=== PATIENT | male | born 1975 | race Two or more races ===

== ENCOUNTER 2019-08-12 23:12 | Emergency (ER) | payer SELFPAY ==
[~2019-08-12] VITALS: Ht 167.6 cm; Wt 86.2 kg
[2019-08-12 23:23] VITALS: BP 169/93
[2019-08-13] MEDS ORDERED: KETOROLAC 15 MG/ML VIAL. IV ONE
[2019-08-13] MEDS ORDERED: MORPHINE SULFATE 4 MG/ML VIAL. IV ONE
[2019-08-13] MEDS ORDERED: IV NORMAL SALINE 1000ML BAG 1,000 ML IV ONE
--- NOTE | 2019-08-13 00:22 | RAD ---
CT ABDOMEN PELVIS WO CONTRAST INDICATION: Flank pain for 2 months EXAM: Noncontrast CT of the abdomen and pelvis. Coronal and sagittal reformatted images were performed. PQRS compliance statement: One or more of the following individualized dose reduction techniques were utilized for this examination: 1. Automated exposure control 2. Adjustment of the mA and/or kV according to patient size 3. Use of iterative reconstruction technique COMPARISON: None FINDINGS: No free air, free fluid, or fluid collection. Lower chest: The visualized lower lungs are aerated. No pleural or pericardial effusion. ABDOMEN: Liver: The noncontrast liver is homogeneous in attenuation. Gallbladder and biliary: Normal gallbladder without radiopaque stone. Normal caliber bile ducts. Spleen: Normal spleen. Pancreas: The noncontrast pancreas is homogeneous in attenuation without peripancreatic inflammatory changes. Adrenal glands: Normal adrenal glands. Kidneys and ureters: No hydronephrosis or opaque urinary calculi. GI tract: The stomach is distended with debris. Normal caliber small bowel and colon. Normal appendix. Vascular structures: Normal caliber abdominal aorta. Lymph nodes: No lymphadenopathy in the abdomen or pelvis. PELVIS: Genitourinary system: Normal bladder. Normal size prostate. SKELETAL STRUCTURES AND SOFT TISSUES: No fracture or destructive lesion in the visualized skeleton. IMPRESSION: No acute abdominal process. No hydronephrosis or opaque urinary calculi. Electronically signed by: Jimmy Maldonado MD (08/13/2019 12:19 AM) [facility]
[2019-08-13 00:30] LABS: BILIRUBIN,URINE NEGATIVE (NEG); CLARITY,URINE CLEAR; COLOR,URINE YELLOW; NITRITE,URINE NEGATIVE (NEG); PROTEIN,URINE NEGATIVE (NEG-TRACE); UROBILINOGEN,URINE 0.2 mg/dL (0.2 mg/dL)
[2019-08-13 00:37] LABS: AMPHETAMINE/METHAMPHETAMINE NEG (NEG); BARBITURATES NEG (NEG); BENZODIAZEPINES NEG (NEG); CANNABINOIDS NEG (NEG); COCAINE NEG (NEG); METHADONE NEG (NEG); OPIATES NEG (NEG); PHENCYCLIDINE NEG (NEG)
[2019-08-13 00:43] LABS: BACTERIA,URINE 0 /HPF (0-FEW); SQUAMOUS EPITHELIAL CELL,UR FEW /LPF
--- NOTE | 2019-08-13 00:43 | PHYS DOC ---
Past Medical History Past Medical History: No Pertinent History Past Surgical History: No Surgical History Alcohol Use: None Drug Use: None Adult General Chief Complaint Chief Complaint: FLANK PAIN [facility] HPI Patient is a 43 year old Jamaican-speaking male with no medical history who presents to the ED today complaining of 10 out of 10 bilateral flank pain/mid back pain radiating to the groin that began 2 months ago. 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 Patient states immobilization sometimes relieves the pain. She states this afternoon the pain was slightly more than normal and he decided to come to the ED to be evaluated. Denies any known injury. Denies any urgency, frequency, dysuria. Denies any hematuria, denies any personal family history of kidney stones. Transliterator line was used for [place] Review of Systems Review of Systems Constitutional: Denies fever or chills [] Eyes: Denies change in visual acuity, redness, or eye pain [] HENT: Denies nasal congestion or sore throat [] Respiratory: Denies cough or shortness of breath [] Cardiovascular: No additional information not addressed in HPI [] GI: Denies abdominal pain, nausea, vomiting, bloody stools or diarrhea [] : Denies dysuria or hematuria [] Musculoskeletal: Reports bilateral flank pain radiating to the groin Integument: Denies rash or skin lesions [] Neurologic: Denies headache, focal weakness or sensory changes [] All other systems were reviewed and found to be within normal limits, except as documented in this note. Current Medications Current Medications Current Medications Medications (Trade) Dose Ordered Sig/Chrissie Start Time Stop Time Status Last Admin Dose Admin Ketorolac Tromethamine (Toradol 15mg Vial) 15 mg 1X ONCE 08/13/19 00:00 08/13/19 00:01 DC Morphine Sulfate (Morphine Sulfate) 4 mg 1X ONCE 08/13/19 00:00 08/13/19 00:01 DC Sodium Chloride 1,000 ml @ 1,000 mls/hr 1X ONCE 08/13/19 00:00 08/13/19 00:59 Allergies Allergies Allergies Coded Allergies Type Severity Reaction Last Updated Verified No Known Drug Allergies 08/12/19 No Physical Exam Physical Exam Constitutional: Well developed, well nourished, no acute distress, non-toxic appearance. [] HENT: Normocephalic, atraumatic, bilateral external ears normal, oropharynx moist, no oral exudates, nose normal. [] Eyes: PERRLA, EOMI, conjunctiva normal, no discharge. [] Neck: Normal range of motion, no tenderness, supple, no stridor. [] Cardiovascular:Heart rate regular rhythm, no murmur [] Lungs & Thorax: Bilateral breath sounds clear to auscultation [] Abdomen: Bowel sounds normal, soft, no tenderness, no masses, no pulsatile masses. [] Skin: Warm, dry, no erythema, no rash. [] Back: No tenderness, no CVA tenderness. [] Extremities: No tenderness, no cyanosis, no clubbing, ROM intact, no edema. [] Neurologic: Alert and oriented X 3, normal motor function, normal sensory function, no focal deficits noted. [] Psychologic: Affect normal, judgement normal, mood normal. [] Current Patient Data Vital Signs Vital Signs Date Time Temp Pulse Resp B/P (MAP) Pulse Ox O2 Delivery O2 Flow Rate FiO2 08/12/19 23:23 98.0 96 18 169/93 (118) 95 Room Air 98.0 Lab Values Laboratory Tests Test 08/13/19 00:15 Urine Collection Type Unknown Urine Color Yellow Urine Clarity Clear Urine pH 5.0 Urine Specific [place] 1.025 Urine Protein Negative mg/dL (NEG-TRACE) Urine Glucose (UA) Negative mg/dL (NEG) Urine Ketones (Stick) Negative mg/dL (NEG) Urine Blood Negative (NEG) Urine Nitrite Negative (NEG) Urine Bilirubin Negative (NEG) Urine Urobilinogen Dipstick 0.2 mg/dL (0.2 mg/dL) Urine Leukocyte Esterase Negative (NEG) Urine RBC 1-2 /HPF (0-2) Urine WBC 1-4 /HPF (0-4) Urine Squamous Epithelial Cells Few /LPF Urine Bacteria 0 /HPF (0-FEW) Urine Opiates Screen Neg (NEG) Urine Methadone Screen Neg (NEG) Urine Barbiturates Neg (NEG) Urine Phencyclidine Screen Neg (NEG) Urine Amphetamine/Methamphetamine Neg (NEG) Urine Benzodiazepines Screen Neg (NEG) Urine Cocaine Screen Neg (NEG) Urine Cannabinoids Screen Neg (NEG) Urine Ethyl Alcohol Neg (NEG) EKG EKG [] Radiology/Procedures Radiology/Procedures []PROCEDURE: CT ABDOMEN PELVIS WO CONTRAST CT ABDOMEN PELVIS WO CONTRAST INDICATION: Flank pain for 2 months EXAM: Noncontrast CT of the abdomen and pelvis. Coronal and sagittal reformatted images were performed. PQRS compliance statement: One or more of the following individualized dose reduction techniques were utilized for this examination: 1. Automated exposure control 2. Adjustment of the mA and/or kV according to patient size 3. Use of iterative reconstruction technique COMPARISON: None FINDINGS: No free air, free fluid, or fluid collection. Lower chest: The visualized lower lungs are aerated. No pleural or pericardial effusion. ABDOMEN: Liver: The noncontrast liver is homogeneous in attenuation. Gallbladder and biliary: Normal gallbladder without radiopaque stone. Normal caliber bile ducts. Spleen: Normal spleen. Pancreas: The noncontrast pancreas is homogeneous in attenuation without peripancreatic inflammatory changes. Adrenal glands: Normal adrenal glands. Kidneys and ureters: No hydronephrosis or opaque urinary calculi. GI tract: The stomach is distended with debris. Normal caliber small bowel and colon. Normal appendix. Vascular structures: Normal caliber abdominal aorta. Lymph nodes: No lymphadenopathy in the abdomen or pelvis. PELVIS: Genitourinary system: Normal bladder. Normal size prostate. SKELETAL STRUCTURES AND SOFT TISSUES: No fracture or destructive lesion in the visualized skeleton. IMPRESSION: No acute abdominal process. No hydronephrosis or opaque urinary calculi. Electronically signed by: Yuliana Basilio MD (08/13/2019 12:19 AM) [facility] DICTATED and SIGNED BY: YULIANA BASILIO MD DATE: 08/13/19 0019 Course & Med Decision Making Course & Med Decision Making Pertinent Labs and Imaging studies reviewed. (See chart for details) This is a 43-year-old male patient presenting to the ED today complaining of flank pain/mid back pain for 2 months. No known injury. CT of the abdomen and pelvic is negative for any acute findings, UA is negative. Pain is musculoskeletal provided prescription pain medicine for home use and encouraged to follow up with her primary care doctor. Barney Disclaimer Dragon Disclaimer This electronic medical record was generated, in whole or in part, using a voice recognition dictation system. Departure Departure Impression: Primary Impression: Acute thoracic back pain Additional Impression: Low back pain Disposition: 01 HOME, SELF-CARE Condition: STABLE Referrals: NO PCP (PCP) follow up in with your doctor in one week Patient Instructions: Back Pain, Adult, [id number] Additional Instructions: You were seen in the emergency room for back pain. Take the prescribed medications as needed for pain. Please follow-up with your own doctor in 1-2 weeks. Come back to the ED at any point symptoms worsen. Consider using a heating pad to your back. Scripts Naproxen (NAPROXEN) 500 Mg Tablet 1 TAB PO BID, #20 TAB 0 Refills Prov: ELENI SIMS APRN 08/13/19 Hydrocodone/Apap 5-325 (NORCO 5-325 TABLET) 1 Each Tablet 1 TAB PO Q6HRS PRN for PAIN MDD 8, #10 TAB Prov: ELENI SIMS APRN 08/13/19 Cyclobenzaprine Hcl (CYCLOBENZAPRINE HCL) 10 Mg Tablet 1 TAB PO TID, #30 TAB Prov: ELENI SIMS APRN 08/13/19 Methylprednisolone (MEDROL) 4 Mg Tab.ds.pk 1 PKG PO UD, #1 PKG Prov: ELENI SIMS APRN 08/13/19 Problem Qualifiers Primary Impression: Acute thoracic back pain Back pain laterality: bilateral Qualified Codes: M54.6 - Pain in thoracic spine Additional Impression: Low back pain Chronicity: acute Back pain laterality: bilateral Sciatica presence: without sciatica Qualified Codes: M54.5 - Low back pain BARBARASHANICEELENI APRN Aug 13, 2019 00:43
[2019-08-13] MEDS ORDERED: NAPR-514 PO (00:50)
[2019-08-13] MEDS ORDERED: CYCL10TA2 PO (00:50)
[2019-08-13] MEDS ORDERED: HYDR-3164 PO (00:50)
[2019-08-13] MEDS ORDERED: METH4TAB2 PO (00:50)
[2019-08-13] MEDS ORDERED: CYCLOBENZAPRINE 10 MG TABLET. PO ONE (01:00)
[2019-08-13] MEDS ORDERED: HYDROcodone/APAP 5/325MG 1 TAB TABLET PO ONE (01:00)
[2019-08-13] MEDS ORDERED: NAPROXEN 500 MG TABLET PO ONE (01:00)
== END 2019-08-13 01:13 | disposition home or self-care (01) ==
LOC: ER 23:12
DX: M54.5 Low back pain (principal); M54.6 Pain in thoracic spine; R10.30 Lower abdominal pain, unspecified
CPT/HCPCS: 74176; 80307; 81001; 99285-25